=== PATIENT | female | born 1985 | race African-American/Black ===

== ENCOUNTER 2022-12-01 04:48 | Emergency (ER) | payer MEDICAID ==
[~2022-12-01] VITALS: Ht 165.1 cm; Wt 65.0 kg
[2022-12-01 05:01] VITALS: BP 108/50
== END 2022-12-01 07:34 | disposition left against medical advice (07) ==
LOC: ER 04:48
DX: R07.89 Other chest pain (principal); Z53.21 Procedure and treatment not carried out due to patient leaving prior to being seen by health care provider